=== PATIENT | female | born 1945 | race Caucasian/White ===

== ENCOUNTER 2016-04-21 07:50 | Outpatient (RCR) | payer OTHER | END 2016-05-17 | disposition home or self-care (01) | LOC: PTY 07:50 | DX: M72.2 Plantar fascial fibromatosis (principal); M77.52 Other enthesopathy of left foot and ankle ==

== ENCOUNTER 2016-05-20 07:55 | Outpatient (RCR) | payer OTHER | END 2016-06-14 | disposition home or self-care (01) | LOC: PTY 07:55 | DX: M72.2 Plantar fascial fibromatosis (principal); M77.52 Other enthesopathy of left foot and ankle; M77.32 Calcaneal spur, left foot ==

== ENCOUNTER 2016-06-21 07:40 | Outpatient (RCR) | payer OTHER | END 2016-07-15 | disposition home or self-care (01) | LOC: PTY 07:40 | DX: M72.2 Plantar fascial fibromatosis (principal); M77.52 Other enthesopathy of left foot and ankle; M77.32 Calcaneal spur, left foot; M19.90 Unspecified osteoarthritis, unspecified site | CPT/HCPCS: 97035; 97110; 97140; G0283 ==

== ENCOUNTER 2016-07-18 10:55 | Outpatient (RCR) | payer OTHER | END 2016-08-14 | disposition home or self-care (01) | LOC: PTY 10:55 | DX: M72.2 Plantar fascial fibromatosis (principal); M77.52 Other enthesopathy of left foot and ankle; M77.32 Calcaneal spur, left foot | CPT/HCPCS: 97110; 97140; G0283 ==

== ENCOUNTER 2016-08-16 08:05 | Outpatient (RCR) | payer OTHER | END 2016-09-14 | disposition home or self-care (01) | LOC: PTY 08:05 | DX: M72.2 Plantar fascial fibromatosis (principal) ==